=== PATIENT | male | born 1995 | race Caucasian/White ===

== ENCOUNTER → 2016-12-06 | Outpatient (CLI) | payer BC, OTHER ==
[~2016-12-06] MED LIST: IBUP-103 PO
--- NOTE | 2016-12-06 11:08 | DIAGNOSTIC IMAGING REPORT ---
PELVIS 1 OR 2 VIEWS CLINICAL HISTORY: Pelvic pain COMPARISON STUDY: Pelvis 03/03/2015. FINDINGS: No fracture or dislocation within the pelvis or hips. The sacrum appears intact. Bilateral sacroiliac joints are within normal limits. Soft tissues are unremarkable. Mild cartilage space narrowing and subchondral sclerosis within the superior aspect of the hips. IMPRESSION: Minimal osteoarthritis within the bilateral hips. No fracture or dislocation. Electronically signed by: Edy Brar M.D. 12/06/2016 11:06 AM Dictated Date/Time: 12/06/2016 11:04 AM
== END | disposition home or self-care (01) ==
LOC: C.RDSM 10:55
PROVIDERS: ATTEND Internal Medicine
DX: R10.2 Pelvic and perineal pain (principal)

== ENCOUNTER → 2017-02-02 | Outpatient (CLI) | payer BC, OTHER ==
--- NOTE | 2017-02-02 16:11 | DIAGNOSTIC IMAGING REPORT ---
MRI pelvis PELVIS WITHOUT CONTRAST (MRI) CLINICAL HISTORY: ABDOMINAL WALL STRAIN pain. Hernia. TECHNIQUE: Multiaxial MRI acquisition COMPARISON STUDY: None FINDINGS: Unremarkable study. All major structures the anterior abdominal wall are intact. There is no evidence for hernia. The bowel pattern is nonobstructive. The anterior rectus musculature is symmetric. Lateral pelvic sidewall musculature is unremarkable. IMPRESSION: Normal study Electronically signed by: Aayush Bateman M.D. 02/02/2017 4:10 PM Dictated Date/Time: 02/02/2017 4:06 PM
== END | disposition home or self-care (01) ==
LOC: C.MRIBC 14:52
PROVIDERS: ATTEND Internal Medicine
DX: S39.011A Strain of muscle, fascia and tendon of abdomen, initial encounter (principal); X58.XXXA Exposure to other specified factors, initial encounter